=== PATIENT | female | born 1945 | race Caucasian/White ===

== ENCOUNTER 2018-01-28 13:29 | Emergency (ER) | payer OTHER ==
[~2018-01-28] VITALS: Ht 167.6 cm; Wt 86.2 kg
[2018-01-28] MEDS ORDERED: ZYRTEC10 MG PO (14:18)
[2018-01-28] MEDS ORDERED: MEDROLDOSEPACK PO (14:18)
== END 2018-01-28 14:46 | disposition home or self-care (01) ==
LOC: ER 13:29
DX: L25.9 Unspecified contact dermatitis, unspecified cause (principal); Z88.8 Allergy status to other drugs, medicaments and biological substances